=== PATIENT | male | born 1985 | race Two or more races ===

== ENCOUNTER 2017-06-12 20:02 | Emergency (ER) | payer OTHER ==
[~2017-06-12] VITALS: Ht 182.9 cm; Wt 64.9 kg
[2017-06-12 21:50] LABS: HEMATOCRIT 50.4 % (39.2-51.8); HEMOGLOBIN 17.3 g/dL (13.7-18.0); WHITE BLOOD COUNT 10.7 x10^3/uL (3.4-10)
[2017-06-12 22:02] LABS: ASPARTATE AMINO TRANSFERASE 13 U/L (15-37); BLOOD UREA NITROGEN 10 mg/dL (7-18)
[2017-06-12 22:03] LABS: ACETAMINOPHEN < 2 mcg/mL (10-30)
[2017-06-12 22:04] LABS: DAU SCREEN DISCLAIMER
[2017-06-13 00:01] VITALS: BP 120/60
== END 2017-06-13 00:04 | disposition home or self-care (01) ==
LOC: ED 22:11
DX: F31.9 Bipolar disorder, unspecified (principal)
CPT/HCPCS: 36415; 80053; 80307; 80329; 84443; 85025; 99284; G0479; G0480